=== PATIENT | male | born 1970 | race Native Hawaiian/Other Pacific Islander ===

== ENCOUNTER 2017-04-16 13:10 | Emergency (ER) | payer OTHER ==
[2017-04-16 13:41] VITALS: BP 142/91; PULSE 68; RESP 18; TEMP 97; O2SAT 99
--- NOTE | 2017-04-16 15:23 | ED PDOC ---
HPI: General Adult Time Seen by Provider: 04/16/17 15:10 Chief Complaint (Nursing): Medical Clearance Chief Complaint (Provider): CO exposure History Per: Patient History/Exam Limitations: no limitations Onset/Duration Of Symptoms: Days (x1) Additional Complaint(s): 47 y/o male presents for evaluation after CO exposure. States he was located at the back of [facility] when CO was discovered. No symptoms at this time. PMD: Provider TBD Past Medical History Reviewed: Historical Data, Nursing Documentation, Vital Signs Vital Signs: Last Vital Signs Temp 97.0 F L 04/16/17 13:40 Pulse 68 04/16/17 13:40 Resp 18 04/16/17 13:40 BP 142/91 H 04/16/17 13:40 Pulse Ox 99 04/16/17 15:25 - Medical History PMH: HTN - Family History Family History: States: Unknown Family Hx - Allergies Allergies/Adverse Reactions: Allergies Allergy/AdvReac Type Severity Reaction Status Date / Time No Known Allergies Allergy Verified 04/16/17 13:40 Review of Systems ROS Statement: Except As Marked, All Systems Reviewed And Found Negative Constitutional: Negative for: Weakness Respiratory: Negative for: Shortness of Breath Gastrointestinal: Negative for: Nausea Neurological: Negative for: Headache, Dizziness Physical Exam - Reviewed Nursing Documentation Reviewed: Yes Vital Signs Reviewed: Yes - Physical Exam Appears: Positive for: Well, Non-toxic, No Acute Distress Head Exam: Positive for: ATRAUMATIC, NORMOCEPHALIC Skin: Positive for: Normal Color Eye Exam: Positive for: Normal appearance Neck: Positive for: Normal Cardiovascular/Chest: Negative for: Tachycardia Respiratory: Negative for: Respiratory Distress Extremity: Positive for: Normal ROM Neurologic/Psych: Positive for: Alert, Oriented (x3), Gait (steady), Other ( speech is clear). Negative for: Motor/Sensory Deficits - ECG O2 Sat by Pulse Oximetry: 99 (RA) Pulse Ox Interpretation: Normal - Progress ED Course And Treament: vbg CO noted at 2.3 Medical Decision Making Medical Decision Making: Initial CO-oximetry used to screen patients. Patient offered VBG with ABG carboxyhemoglobin analysis to confirm. CO was 3.6 in triage. Will obtain VBG to confirm. Receiving 100% non-rebreather oxygen. Time: 15:14 --VBG Scribe Attestation: Documented by Michelle Rivero, acting as a scribe for Balaji Ivey PA-C Provider Scribe Attestation: All medical record entries made by the Scribe were at my direction and personally dictated by me. I have reviewed the chart and agree that the record accurately reflects my personal performance of the history, physical exam, medical decision making, and the department course for this patient. I have also personally directed, reviewed, and agree with the discharge instructions and disposition. Disposition - Clinical Impression Clinical Impression: Carbon monoxide exposure - Patient ED Disposition Is Patient to be Admitted: No - Disposition Disposition: Routine/Home Disposition Time: 15:41 Condition: FAIR Instructions: Carbon Monoxide Poisoning (ED) Forms: [employer] (Faroese)
[2017-04-16 15:24] LABS: VENOUS BLOOD GAS BASE EXCESS 1.3 mmol/L (0.0-2.0); VENOUS BLOOD GAS PCO2 40 mmHg (40-60); VENOUS BLOOD GAS PO2 49 mm/Hg (30-55); VENOUS BLOOD PH 7.42 (7.32-7.43)
== END 2017-04-16 15:48 | disposition home or self-care (01) ==
LOC: H.ER 13:10
DX: T58.91XA Toxic effect of carbon monoxide from unspecified source, accidental (unintentional), initial encounter (principal); Y99.0 Civilian activity done for income or pay; I10 Essential (primary) hypertension